=== PATIENT | female | born 1945 | race Caucasian/White ===

== ENCOUNTER → 2023-02-09 11:19 | Outpatient (REF) | payer MEDICARE, OTHER, SELFPAY | LOC: DHCBS MAIN 11:19 | PROVIDERS: ATTENDING PHYSICIAN Internal Medicine Cardiovascular Disease; FAMILY PHYSICIAN Family Medicine | DX: I34.0 Nonrheumatic mitral (valve) insufficiency (principal); I71.40 Abdominal aortic aneurysm, without rupture, unspecified | CPT/HCPCS: 93306 ==

== ENCOUNTER → 2023-05-24 12:21 | Outpatient (REF) | payer MEDICARE, OTHER, SELFPAY ==
[2023-05-24 14:03] LABS: Blood Urea Nitrogen 27 mg/dl (7-17)
== END ==
LOC: REG 12:21
PROVIDERS: ATTENDING PHYSICIAN Nurse Practitioner; FAMILY PHYSICIAN Family Medicine; OTHER PHYSICIAN Thoracic Surgery (Cardiothoracic Vascular Surgery)
DX: I71.20 Thoracic aortic aneurysm, without rupture, unspecified (principal); I35.9 Nonrheumatic aortic valve disorder, unspecified; I05.9 Rheumatic mitral valve disease, unspecified
CPT/HCPCS: 36415; 82565; 84520

== ENCOUNTER → 2023-06-02 11:19 | Outpatient (REF) | payer MEDICARE, OTHER, SELFPAY | LOC: RAD 11:19 | PROVIDERS: ATTENDING PHYSICIAN Nurse Practitioner; FAMILY PHYSICIAN Family Medicine | DX: I71.20 Thoracic aortic aneurysm, without rupture, unspecified (principal); I35.9 Nonrheumatic aortic valve disorder, unspecified; I05.9 Rheumatic mitral valve disease, unspecified | CPT/HCPCS: 71275; 74174; Q9967 ==

== ENCOUNTER → 2023-06-08 15:25 | Outpatient (REF) | payer MEDICARE, OTHER, SELFPAY | LOC: RCS 15:25 | PROVIDERS: ATTENDING PHYSICIAN Nurse Practitioner; FAMILY PHYSICIAN Family Medicine; REFERRING PHYSICIAN Internal Medicine Cardiovascular Disease | DX: I71.20 Thoracic aortic aneurysm, without rupture, unspecified (principal); I35.9 Nonrheumatic aortic valve disorder, unspecified; I05.9 Rheumatic mitral valve disease, unspecified | CPT/HCPCS: 93306 ==

== ENCOUNTER → 2023-06-09 13:19 | Outpatient (REF) | payer MEDICARE, OTHER, SELFPAY | LOC: WDC 13:19 | PROVIDERS: ATTENDING PHYSICIAN Obstetrics & Gynecology; FAMILY PHYSICIAN Family Medicine | DX: Z12.31 Encounter for screening mammogram for malignant neoplasm of breast (principal) | CPT/HCPCS: 77063; 77067 ==

== ENCOUNTER 2023-08-16 06:13 | Day surgery (SDC) | payer MEDICARE, OTHER, SELFPAY ==
[2023-08-16 11:28] VITALS: BMI 24.1
[2023-08-16 11:33] VITALS: BMI 24.1
[2023-08-16 11:34] VITALS: BP 147/91
[2023-08-16 13:35] VITALS: BP 124/79
[2023-08-16 13:45] VITALS: BP 128/68
[2023-08-16 14:00] VITALS: BP 153/80
== END 2023-08-16 14:20 | disposition home or self-care (01) ==
LOC: SDS 06:13
PROVIDERS: ATTENDING PHYSICIAN Internal Medicine Gastroenterology
DX: Z12.11 Encounter for screening for malignant neoplasm of colon (principal); D12.0 Benign neoplasm of cecum; D12.2 Benign neoplasm of ascending colon; K63.5 Polyp of colon; K64.0 First degree hemorrhoids; Z86.010 Personal history of colon polyps; Z79.01 Long term (current) use of anticoagulants
CPT/HCPCS: 45390; 45380; 88305

== ENCOUNTER 2023-10-03 15:27 | Emergency (ER) | payer MEDICARE, OTHER, SELFPAY ==
[2023-10-03 15:29] VITALS: BP 152/89
[2023-10-03 16:41] LABS: % Basophils 0.9 % (0-2); % Eosinophils 0.8 % (0-6); % Immature Granulocytes 0.3 % (0-0.5); % Lymphocytes 13.6 % (20.5-51.1); % Monocytes 8.8 % (1.7-9.3); % Neutrophils 75.6 % (42.2-75.2); Absolute Basophils 0.1 10^3/uL (0-0.2); Absolute Eosinophils 0.1 10^3/uL (0-0.7); Absolute Lymphocytes 1.1 10^3/uL (1.2-3.4); Absolute Monocytes 0.7 10^3/uL (0.1-0.6); Hematocrit 29.9 % (37.0-47.0); Hemoglobin 9.2 g/dL (12.0-16.0); Mean Corp Hgb Conc. 30.8 g/dL (33.0-37.0); Mean Corpuscular Hgb 26.3 pg (27.0-31.0); Mean Corpuscular Volume 85.4 fL (81.0-99.0); Nucleated Red Blood Cells % 0 %; Platelet Count 147 10^3/uL (130-400); White Blood Cell Count 7.9 10^3/uL (4.8-10.8)
[2023-10-03 17:15] LABS: Blood Urea Nitrogen 33 mg/dl (7-17); Calcium 9.7 mg/dl (8.4-10.2); Carbon Dioxide 22 mmol/L (22-30); Chloride 109 mmol/L (98-107); Glucose 92 mg/dl (70-99); Sodium 141 mmol/L (135-145); eGFR > 60.00
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
[2023-10-03] MEDS: VIBRAMYCIN 260 MG IV (18:17)
[2023-10-03 19:21] VITALS: BP 160/80
== END 2023-10-03 19:24 | disposition home or self-care (01) ==
LOC: EMR 15:27
PROVIDERS: Nurse Practitioner; EMERGENCY PHYSICIAN Emergency Medicine; FAMILY PHYSICIAN Family Medicine
DX: L03.114 Cellulitis of left upper limb (principal); L02.512 Cutaneous abscess of left hand; F17.200 Nicotine dependence, unspecified, uncomplicated
CPT/HCPCS: 99284; 96365; 73130; 80048; 85025; 87070; 87205

== ENCOUNTER → 2023-10-16 12:28 | Outpatient (REF) | payer MEDICARE, OTHER, SELFPAY | LOC: WOUND 12:28 | PROVIDERS: ATTENDING PHYSICIAN Surgery; FAMILY PHYSICIAN Family Medicine | DX: S61.412A Laceration without foreign body of left hand, initial encounter (principal); I48.92 Unspecified atrial flutter; Z79.01 Long term (current) use of anticoagulants; X58.XXXA Exposure to other specified factors, initial encounter | CPT/HCPCS: 99203 ==

== ENCOUNTER → 2023-10-24 14:15 | Outpatient (REF) | payer MEDICARE, OTHER, SELFPAY | LOC: WOUND 14:15 | PROVIDERS: ATTENDING PHYSICIAN Surgery; FAMILY PHYSICIAN Family Medicine | DX: S61.412A Laceration without foreign body of left hand, initial encounter (principal); Z79.01 Long term (current) use of anticoagulants; I48.92 Unspecified atrial flutter; W22.8XXA Striking against or struck by other objects, initial encounter; Y93.89 Activity, other specified | CPT/HCPCS: 99213 ==

== ENCOUNTER 2023-11-08 06:00 | Day surgery (SDC) | payer MEDICARE, OTHER, SELFPAY ==
[2023-10-23 12:45] VITALS: BMI 23.3
[2023-11-08] VITALS (20 sets, daily range): BP systolic 102–155; BP diastolic 56–89; BMI 23.1
--- NOTE | 2023-11-08 07:38 | ITS.CL.ABL ---
Development Vice President - Ablation
Ablation
Procedure Report:
Primary Administrative Personal Assistant: Jemal Ibrahim MD
Procedure Date: 11/08/2023
Procedure
Electrophysiology Study, with RA, CS pacing and recording
Radiofrequency Ablation of Counterclockwise Cavotricuspid Isthmus-dependent Right Atrial Flutter
Three-dimensional Electroanatomic Mapping and Navigation
Patient History
See H&P for complete details
Patient is a pleasant 77-year-old female with a past medical history significant for much regurgitation, hypertension, thoracic aortic aneurysm status post TEVAR 2017, COPD, teratoma, giant cell arteritis, AAA, PACs, carotid bruits, and symptomatic
persistent typical atrial flutter.
Method
After informed consent was obtained, the patient was brought to the EP lab in a post-absorptive, non-sedated state. A peripheral IV was in place. Continuous electrocardiography, blood pressure and pulse oximetry monitoring were initiated and
cardioversion / defibrillator patch electrodes were positioned on the chest in an anterior-posterior orientation. Sedation was administered via the anesthesia services. A time-out was called. Local anesthesia was administered at the right and left
femoral vein access sites. Vascular access was achieved using modified Seldinger technique, and 3 sheaths were placed.
The patient entered the room in [ ]. A multipolar catheter were advanced to the coronary sinus. A mapping / ablation catheter was used to record and pace. Intracardiac ultrasound (ICE) was utilized for structural assessment and monitoring. There
was no evidence of pericardial effusion at the initiation of the procedure, during procedure, or at completion of procedure. Tachycardia was characterized by activation patterns in the CS catheters. Entrainment maneuvers established cavotricuspid
isthmus-dependence.
Three-dimensional electroanatomic mapping was utilized. Catheter ablation in the right atrium was performed as described below. The patient�s atrial flutter terminated during ablation. Ablation continued until a line was complete from the
tricuspid valve annulus to the IVC-RA junction. Clockwise and counterclockwise trans-isthmus times were determined, and RA activation patterns confirmed bidirectional block. Interval measurements in NSR were made. A waiting period was observed,
after which the procedure was concluded.
At the end of the procedure, all catheters and sheaths were removed, hemostasis was assured in the standard fashion with figure of 8 suture, and the patient was taken to the recovery area in stable condition.
Baseline Intervals:
Rhythm: Atrial flutter, tachycardia cycle length 260-270 ms
QRS: 76 ms
Post-Procedure Intervals:
[place]: 133 ms
QRS: 90 ms
QT: 356 ms
QTc: 401 ms
A-A: 787 ms
R-R: 787 ms
AVWB: 480 ms
AVNERP: 600/390 ms
No arrhythmia was inducible post ablation
Arrhythmia Summary
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
� Present at study outset
� Stable Atrial CL = 260-270 ms
� Surface flutter wave morphology: Negative in the inferior leads and positive in V1
� Right to left activation in CS
� Cycle length contained with in the RA on electroanatomic mapping
� Pacing from the isthmus resulted in entrainment (with concealment) with PPI=TCL.
These finding established the diagnosis of isthmus-dependent, counterclockwise atrial flutter.
Mapping and Ablation
Utilizing electroanatomic three-dimensional navigation, a 3.5 mm tip [employer] irrigated ablation catheter was advanced to the right atrium with the assistance of an 11.5 Fr Agilis steerable long sheath. An electroanatomic three-dimensional map
of the right atrium was constructed, with careful attention to anatomic landmarks, including the coronary sinus, IVC-RA and SVC-RA junction, tricuspid valve annulus, and region of the His bundle electrogram.
An ablation line was created from the tricuspid annulus to the IVC in the 6:00 position (UZBEK clock). Power was titrated between 30 and 40 Patel with careful monitoring of impedance, temperature, and position. The patient�s atrial flutter
terminated during ablation, with resumption of NSR. The line was completed during CS pacing, and bidirectional block was achieved. Following initial ablation, transisthmus time was noted to be 112-120 ms. Careful mapping along the line
demonstrated areas of breakthrough; repeat ablation was performed in these regions. The ablation line was mapped to ensure widely spaced double potentials, and after a 20 minute waiting period, bidirectional block persisted.
Ablation Summary
Total ablation time: 9 minutes 1 seconds
Estimated Blood Loss
<5 mL
Fluoroscopy Time 2.5
Radiation Dose 6.03 mGy
DAP 0.693
Complications
None
Conclusions
1. Typical, counterclockwise atrial flutter. Isthmus-dependence was established with entrainment.
2. Successful ablation of the cavotricuspid isthmus with bidirectional block.
Recommendations
- Admit for monitoring, anticipate discharge tomorrow
- Bedrest with straight leg precautions for four hours
- Resume anticoagulation tonight if patient/groins stable
- Continue remaining home medications as indicated
- Follow-up in clinic as schedule
Mich Hair,
Clinical Cardiac Electrophysiology
cc: Jemal Ibrahim MD; Maxim Boyer MD
--- NOTE | 2023-11-08 10:42 | PTCARENOTE ---
Dr Pappas in to speak to pt. EKG done and given to Dr Pappas. No further treatment ordered at this time.
[2023-11-08] MEDS: TOPROL XL PO (11:07)
--- NOTE | 2023-11-08 15:33 | CM ---
Chart reviewed. Patient is independent of ADLS, lives alone in a 2 STH, 1 CARLI, 0 DME. Plan is for the patient to return home. CM to follow
--- NOTE | 2023-11-08 18:07 | PTCARENOTE ---
Pt received post ablation done via right femoral vein. Dressing dry and intact, figure of eight suture removed per protocol without problem, no bleeding or hematoma noted. Pt up independently, no difficulty voiding. Pt denies nay discomfort.
Telemetry shows sinus rhythm with very frequent PAC's, rare PVC's, occasional bursts of tachycardia up to 130's.
[2023-11-08] MEDS: ELIQUIS 5 MG PO (19:44)
--- NOTE | 2023-11-09 00:39 | PTCARENOTE ---
Pt received start of shift, HR SA/Afib w/ frequent PACs + occasional PVCs. R groin site dressing CDI, area soft - no hematoma. Pt ambulating independently in room.
[2023-11-09 03:43] VITALS: BP 128/73
[2023-11-09 04:12] VITALS: BMI 23.3
[2023-11-09 04:23] LABS: Hemoglobin 8.9 g/dL (12.0-16.0); Mean Corp Hgb Conc. 30.7 g/dL (33.0-37.0); Mean Corpuscular Hgb 26.1 pg (27.0-31.0); Mean Platelet Volume 11.9 fL (7.4-10.4); Platelet Count 109 10^3/uL (130-400); Red Blood Cell Count 3.41 10^6/uL (4.20-5.40)
[2023-11-09 05:22] LABS: Blood Urea Nitrogen 28 mg/dl (7-17); Calcium 9.4 mg/dl (8.4-10.2); Carbon Dioxide 25 mmol/L (22-30); Chloride 106 mmol/L (98-107); Estimated Creatinine Clearance 55 ml/min; Glucose 95 mg/dl (70-99); Magnesium 2.2 mg/dl (1.6-2.3); Potassium 4.1 mmol/L (3.5-5.1); Sodium 138 mmol/L (135-145); eGFR > 60.00
[2023-11-09 07:48] VITALS: BP 138/75
[2023-11-09] MEDS: ELIQUIS 5 MG PO (07:58)
[2023-11-09] MEDS: TOPROL XL 25 MG PO (07:59)
--- NOTE | 2023-11-09 08:01 | W.PN.CARDCBS ---
Today's Communication / Plan
-
post CTI flutter ablation
Hbg drop will recheck in 1 week
stable for home today
Impression / Plan
-
Primary care physician: Maxim Boyer MD
Primary front desk agent: Jemal Ibrahim MD
77-year-old female with a past medical history significant for much regurgitation, hypertension, thoracic aortic aneurysm status post TEVAR 2018, COPD, teratoma, giant cell arteritis, AAA, PACs, carotid bruits, and symptomatic persistent typical
atrial flutter.
Impression:
Symptomatic Atrial flutter
post CTI flutter ablation 11/08/23
HTN
TAA post TEVAR 2017 with stent 2018
COPD
Chronic Anemia
Giant cell arteritis
AAA
former smoker
Plan:
post ablation groin stable
tele SR with occ PAC's and brief PAT
Hbg dropped from 10.1 -> 8.9, Hbg ranges 9-10 baseline, will check cbc in 1 week, no melena or hematuria
Continue OAC Eliquis
continue Toprol 25mg daily
Activity restrictions reviewed
f/u Dr. Ibrahim in 2 mo
home today
Progress Note - Ict Security Specialist
Subjective
Date of Service: November 09, 2023
no cp, sob, mild back pain/generalized pain
Objective
Labs:
11/09/23 04:04
11/09/23 04:04
Labs
Hgb 8.9 g/dL (12.0-16.0) L 11/09/23 04:04
Hct 29.0 % (37.0-47.0) L 11/09/23 04:04
Plt Count 109 10^3/uL (130-400) L 11/09/23 04:04
Sodium 138 mmol/L (135-145) 11/09/23 04:04
Potassium 4.1 mmol/L (3.5-5.1) 11/09/23 04:04
BUN 28 mg/dl (7-17) H 11/09/23 04:04
Creatinine 0.8 mg/dL (0.6-1.0) 11/09/23 04:04
Glucose 95 mg/dl (70-99) 11/09/23 04:04
Vital Signs and I&O:
Vital Signs
Temp Pulse Resp BP Pulse Ox
98.3 F 71 20 138/75 90
11/09/23 07:41 11/09/23 07:48 11/09/23 07:41 11/09/23 07:48 11/09/23 07:48
Vital Signs
Temp Pulse Resp BP Pulse Ox
98.3 F 71 20 138/75 90
11/09/23 07:41 11/09/23 07:48 11/09/23 07:41 11/09/23 07:48 11/09/23 07:48
Intake & Output
11/07/23 11/08/23 11/09/23 11/10/23
06:59 06:59 06:59 06:59
Intake Total 1819
Balance 1819
Physical Exam
Physical Exam
NAD, AOX3
S1, S2, RRR
CTAB, non labored, no wheeze
SNTND bsx4
No LE edema
R fem site c/d/i no HT, soft
--- NOTE | 2023-11-09 10:28 | PTCARENOTE ---
Pt denies any discomfort, seen by Maria Patel, COMMUNITY SUPPORT SPECIALIST adn cardiology. Telemetry and IV device removed. Discharge instructions reviewed with pt regarding activity and driving restrictions, wound care, medications and their possible side effects, reporting
cares and concrns and follow up appt's. Very good understanding verbalized. Pt escorted out via hweelchair and discharged to home.
--- NOTE | 2023-11-09 10:46 | W.DS.TRANS ---
DC Summary - [employer]
-
Discharge Instructions:
Sleep Apnea Risk Low
Discharge Diagnosis/Procedures Aflutter post ablation
Diet Low Cholesterol
Driving Restrictions No driving for 24 hours
Blood Work Check cbc in 1 week
Instructions:
Stand-Alone Forms: DC Instructions- Cath/EP Lab
Changes to Home Medications: No
Discharge Medications:
DC Medications w/original date entered in [facility]
acetaminophen 500 mg tablet 1,000 mg PO Q6H PRN pain 07/11/22
albuterol sulfate 90 mcg/actuation aerosol inhaler 1 puff inhalation [id number] PRN SOB 07/11/22
apixaban 5 mg tablet (Eliquis) 5 mg PO BID 07/11/22
metoprolol succinate 25 mg tablet,extended release 24 hr 25 mg PO DAILY 07/11/22
multivitamin 1 tab PO DAILY 07/11/22
Bi Flex Joint Supplement Glucosamine Hcl 1.5mg/ Chondroitin/Msm 1.1mg 1 tab PO DAILY 11/08/23
Calcium/ Magnesium 333mg/133mg 1 tab PO DAILY 11/08/23
clindamycin HCl 300 mg capsule 600 mg PO DAILYPRN PRN 1 hour before dentist 11/08/23
Home Medication Changes
Pending Results: No
== END 2023-11-09 10:30 | disposition home or self-care (01) ==
LOC: CATH 06:00
PROVIDERS: Nurse Practitioner Adult Health; ATTENDING PHYSICIAN Internal Medicine Cardiovascular Disease; FAMILY PHYSICIAN Family Medicine; OTHER PHYSICIAN Internal Medicine Cardiovascular Disease
DX: I48.3 Typical atrial flutter (principal); I10 Essential (primary) hypertension; M31.6 Other giant cell arteritis; Z87.891 Personal history of nicotine dependence; Z79.01 Long term (current) use of anticoagulants; I71.40 Abdominal aortic aneurysm, without rupture, unspecified; I25.10 Atherosclerotic heart disease of native coronary artery without angina pectoris; Z87.19 Personal history of other diseases of the digestive system; Z86.79 Personal history of other diseases of the circulatory system; Z79.899 Other long term (current) drug therapy; Z98.890 Other specified postprocedural states
CPT/HCPCS: 93662; C1766; C2630; 76937; 80048; 83735; 85027; 93005; 93653

== ENCOUNTER → 2023-11-16 10:42 | Outpatient (REF) | payer MEDICARE, OTHER, SELFPAY ==
[2023-11-16 11:48] LABS: % Basophils 1.2 % (0-2); % Eosinophils 1.6 % (0-6); % Immature Granulocytes 0.4 % (0-0.5); % Lymphocytes 15.8 % (20.5-51.1); % Monocytes 13.6 % (1.7-9.3); % Neutrophils 67.4 % (42.2-75.2); Absolute Basophils 0.1 10^3/uL (0-0.2); Absolute Eosinophils 0.1 10^3/uL (0-0.7); Absolute Lymphocytes 0.8 10^3/uL (1.2-3.4); Absolute Monocytes 0.7 10^3/uL (0.1-0.6); Absolute Neutrophils 3.4 10^3/uL (1.4-6.5); Hematocrit 33.8 % (37.0-47.0); Mean Corp Hgb Conc. 29.6 g/dL (33.0-37.0); Mean Corpuscular Hgb 25.6 pg (27.0-31.0); Mean Corpuscular Volume 86.7 fL (81.0-99.0); Mean Platelet Volume 12.1 fL (7.4-10.4); Nucleated Red Blood Cells % 0 %; Platelet Count 153 10^3/uL (130-400); Red Cell Dist. Width 17.2 % (11.5-14.5); White Blood Cell Count 5.1 10^3/uL (4.8-10.8)
== END ==
LOC: REG 10:42
PROVIDERS: ATTENDING PHYSICIAN Internal Medicine Cardiovascular Disease; FAMILY PHYSICIAN Family Medicine
DX: D64.9 Anemia, unspecified (principal)
CPT/HCPCS: 36415; 85025

== ENCOUNTER → 2023-12-08 11:47 | Outpatient (REF) | payer MEDICARE, OTHER, SELFPAY ==
[2023-12-08 13:35] LABS: % Basophils 1.1 % (0-2); % Eosinophils 2.3 % (0-6); % Immature Granulocytes 0.4 % (0-0.5); % Lymphocytes 13.1 % (20.5-51.1); % Monocytes 12.5 % (1.7-9.3); % Neutrophils 70.6 % (42.2-75.2); Absolute Basophils 0.1 10^3/uL (0-0.2); Absolute Eosinophils 0.1 10^3/uL (0-0.7); Absolute Lymphocytes 0.7 10^3/uL (1.2-3.4); Absolute Monocytes 0.7 10^3/uL (0.1-0.6); Hemoglobin 10.5 g/dL (12.0-16.0); Mean Corpuscular Hgb 25.9 pg (27.0-31.0); Mean Corpuscular Volume 86.2 fL (81.0-99.0); Mean Platelet Volume 12.5 fL (7.4-10.4); Nucleated Red Blood Cells % 0 %; Platelet Count 135 10^3/uL (130-400); Red Blood Cell Count 4.06 10^6/uL (4.20-5.40); Red Cell Dist. Width 16.8 % (11.5-14.5); White Blood Cell Count 5.6 10^3/uL (4.8-10.8)
[2023-12-08 13:58] LABS: ALT (SGPT) 17 U/L (0-35); AST (SGOT) 25 U/L (14-36); Albumin 4.1 g/dl (3.5-5.0); Alkaline Phosphatase 88 U/L (38-126); Blood Urea Nitrogen 23 mg/dl (7-17); Calcium 9.6 mg/dl (8.4-10.2); Carbon Dioxide 27 mmol/L (22-30); Chloride 106 mmol/L (98-107); Glucose 95 mg/dl (70-99); Iron 84 ug/dl (37-170); Potassium 4.2 mmol/L (3.5-5.1); Sodium 143 mmol/L (135-145); Total Bilirubin 0.5 mg/dl (0.2-1.3); Total Protein 6.7 g/dl (6.3-8.2); eGFR > 60.00
[2023-12-08 14:07] LABS: Percent Saturation 18 % (20-50); Total Iron Binding Capacity 447 ug/dl (265-497)
[2023-12-08 15:03] LABS: Folate 12.8 ng/ml (2.76-20); Vitamin B12 381 pg/ml (239-931)
== END ==
LOC: REG 11:47
PROVIDERS: ATTENDING PHYSICIAN Family Medicine
DX: I10 Essential (primary) hypertension (principal); M15.9 Polyosteoarthritis, unspecified; D63.8 Anemia in other chronic diseases classified elsewhere; M54.6 Pain in thoracic spine; D51.9 Vitamin B12 deficiency anemia, unspecified; D51.8 Other vitamin B12 deficiency anemias
CPT/HCPCS: 36415; 72072; 80053; 82607; 82746; 83540; 83550; 85025

== ENCOUNTER → 2023-12-13 14:10 | Outpatient (REF) | payer MEDICARE, OTHER, SELFPAY | LOC: RAD 14:10 | PROVIDERS: ATTENDING PHYSICIAN Family Medicine; FAMILY PHYSICIAN Family Medicine | DX: M54.50 Low back pain, unspecified (principal) | CPT/HCPCS: 72110 ==

== ENCOUNTER 2024-02-13 06:05 | Day surgery (SDC) | payer MEDICARE, OTHER, SELFPAY ==
[2024-02-13 06:51] VITALS: BMI 23.3
[2024-02-13 06:52] VITALS: BMI 23.3
[2024-02-13 06:53] VITALS: BP 162/70
[2024-02-13 09:25] VITALS: BP 103/61
[2024-02-13 09:30] VITALS: BP 100/63
[2024-02-13 09:45] VITALS: BP 115/71
== END 2024-02-13 09:55 | disposition home or self-care (01) ==
LOC: SDS 06:05
PROVIDERS: ATTENDING PHYSICIAN Internal Medicine Gastroenterology
DX: Z12.11 Encounter for screening for malignant neoplasm of colon (principal); D12.0 Benign neoplasm of cecum; K64.0 First degree hemorrhoids; Z86.0101 Personal history of adenomatous and serrated colon polyps; Z98.890 Other specified postprocedural states
CPT/HCPCS: 45385; 88305

== ENCOUNTER → 2024-05-14 13:22 | Outpatient (REF) | payer MEDICARE, OTHER, SELFPAY ==
[2024-05-14 14:57] LABS: Blood Urea Nitrogen 33 mg/dl (7-17)
== END ==
LOC: REG 13:22
PROVIDERS: ATTENDING PHYSICIAN Nurse Practitioner; FAMILY PHYSICIAN Family Medicine
DX: I71.20 Thoracic aortic aneurysm, without rupture, unspecified (principal)
CPT/HCPCS: 36415; 82565; 84520

== ENCOUNTER → 2024-06-10 12:57 | Outpatient (REF) | payer MEDICARE, OTHER, SELFPAY | LOC: RCS 12:57 | PROVIDERS: ATTENDING PHYSICIAN Nurse Practitioner; FAMILY PHYSICIAN Family Medicine | DX: I71.20 Thoracic aortic aneurysm, without rupture, unspecified (principal) | CPT/HCPCS: 93306 ==

== ENCOUNTER → 2024-06-12 13:08 | Outpatient (REF) | payer MEDICARE, OTHER, SELFPAY | LOC: RAD 13:08 | PROVIDERS: ATTENDING PHYSICIAN Nurse Practitioner; FAMILY PHYSICIAN Family Medicine | DX: I71.20 Thoracic aortic aneurysm, without rupture, unspecified (principal) | CPT/HCPCS: 71275; 74174; Q9967 ==

== ENCOUNTER → 2024-07-23 08:35 | Outpatient (REF) | payer MEDICARE, OTHER, SELFPAY | LOC: RSP 08:35 | PROVIDERS: ATTENDING PHYSICIAN Thoracic Surgery (Cardiothoracic Vascular Surgery); FAMILY PHYSICIAN Family Medicine | DX: R91.1 Solitary pulmonary nodule (principal) | CPT/HCPCS: 94060 ==

== ENCOUNTER → 2024-08-02 09:29 | Outpatient (REF) | payer MEDICARE, OTHER, SELFPAY ==
[2024-08-02 10:21] LABS: ALT (SGPT) 21 U/L (0-35); AST (SGOT) 23 U/L (14-36); Albumin 4.1 g/dl (3.5-5.0); Alkaline Phosphatase 95 U/L (38-126); Blood Urea Nitrogen 22 mg/dl (7-17); Calcium 9.4 mg/dl (8.4-10.2); Carbon Dioxide 27 mmol/L (22-30); Chloride 105 mmol/L (98-107); Glucose 92 mg/dl (70-99); HDL Cholesterol 85 mg/dl; LDL Cholesterol, Calculated 77 mg/dl; Potassium 4.1 mmol/L (3.5-5.1); Sodium 142 mmol/L (135-145); Total Bilirubin 0.7 mg/dl (0.2-1.3); Total Cholesterol 174 mg/dl (50-199); Total Protein 6.8 g/dl (6.3-8.2); Triglyceride 63 mg/dl (10-149); Very Low Density Lipoprotein 12 mg/dl (0-30); eGFR > 60.00
== END ==
LOC: REG 09:29
PROVIDERS: ATTENDING PHYSICIAN Internal Medicine Cardiovascular Disease; FAMILY PHYSICIAN Family Medicine
DX: I10 Essential (primary) hypertension (principal); E78.49 Other hyperlipidemia
CPT/HCPCS: 36415; 80053; 80061

== ENCOUNTER → 2024-10-24 12:35 | Outpatient (REF) | payer MEDICARE, OTHER, SELFPAY ==
[2024-10-24 13:24] LABS: Hematocrit 37.0 % (37.0-47.0); Hemoglobin 11.2 g/dL (12.0-16.0); Mean Corp Hgb Conc. 30.3 g/dL (33.0-37.0); Mean Corpuscular Volume 91.1 fL (81.0-99.0); Nucleated Red Blood Cells % 0 %; Platelet Count 190 10^3/uL (130-400); Red Cell Dist. Width 13.5 % (11.5-14.5)
[2024-10-24 14:05] LABS: ALT (SGPT) 17 U/L (0-35); AST (SGOT) 22 U/L (14-36); Albumin 4.6 g/dl (3.5-5.0); Alkaline Phosphatase 104 U/L (38-126); Blood Urea Nitrogen 29 mg/dl (7-17); Calcium 9.5 mg/dl (8.4-10.2); Carbon Dioxide 28 mmol/L (22-30); Chloride 105 mmol/L (98-107); Glucose 93 mg/dl (70-99); Potassium 4.3 mmol/L (3.5-5.1); Sodium 142 mmol/L (135-145); Total Protein 7.6 g/dl (6.3-8.2); eGFR > 60.00
[2024-10-24 14:19] LABS: INR 0.97; PT 13.3 Sec (11.4-14.6)
[2024-10-24 14:21] LABS: APTT 35.4 Sec (23.4-35.0)
== END ==
LOC: REG 12:35
PROVIDERS: ATTENDING PHYSICIAN Internal Medicine Hematology & Oncology; FAMILY PHYSICIAN Family Medicine
DX: C34.91 Malignant neoplasm of unspecified part of right bronchus or lung (principal); Z79.01 Long term (current) use of anticoagulants
CPT/HCPCS: 36415; 80053; 85025; 85610; 85730

== ENCOUNTER → 2024-10-28 09:52 | Outpatient (REF) | payer MEDICARE, OTHER, SELFPAY ==
[2024-10-28 06:00] VITALS: BMI 22.7
[2024-10-28 10:43] VITALS: BP 142/68; BP_SYST 68
[2024-10-28] MEDS: VANCOCIN 200 IV (11:06)
[2024-10-28 12:20] VITALS: BP 149/69; BP_SYST 63
[2024-10-28 12:25] VITALS: BP 154/73; BP_SYST 59
[2024-10-28 12:40] VITALS: BP 131/62; BP_SYST 75
== END ==
LOC: RADI 09:52
PROVIDERS: ATTENDING PHYSICIAN Internal Medicine Hematology & Oncology; FAMILY PHYSICIAN Family Medicine
DX: C34.91 Malignant neoplasm of unspecified part of right bronchus or lung (principal)
CPT/HCPCS: 36561; 76942; 77001; 99152; 99153

== ENCOUNTER → 2024-11-04 11:22 | Outpatient (REF) | payer MEDICARE, OTHER, SELFPAY ==
[2024-11-04 12:25] LABS: Hematocrit 36.7 % (37.0-47.0); Hemoglobin 11.3 g/dL (12.0-16.0); Mean Corp Hgb Conc. 30.8 g/dL (33.0-37.0); Mean Corpuscular Volume 87.4 fL (81.0-99.0); Nucleated Red Blood Cells % 0 %; Platelet Count 128 10^3/uL (130-400); Red Cell Dist. Width 13.1 % (11.5-14.5)
[2024-11-04 14:28] LABS: Urine Character Slightly Cloudy (Clear)
[2024-11-04 15:10] LABS: Urine Red Blood Cell 0-2 /HPF (0-2); Urine Squamous Cell 0-2 /LPF (Few); Urine White Cell 50-60 /HPF (0-5)
== END ==
LOC: REG 11:22
PROVIDERS: ATTENDING PHYSICIAN Internal Medicine Hematology & Oncology; FAMILY PHYSICIAN Family Medicine
DX: C34.91 Malignant neoplasm of unspecified part of right bronchus or lung (principal); Z79.01 Long term (current) use of anticoagulants; N39.0 Urinary tract infection, site not specified
CPT/HCPCS: 36415; 81003; 81015; 85025; 87077; 87086; 87186

== ENCOUNTER → 2024-11-18 09:31 | Outpatient (REF) | payer MEDICARE, OTHER, SELFPAY ==
[2024-11-18 10:39] LABS: Hematocrit 33.5 % (37.0-47.0); Hemoglobin 10.3 g/dL (12.0-16.0); Mean Corp Hgb Conc. 30.7 g/dL (33.0-37.0); Mean Corpuscular Volume 89.3 fL (81.0-99.0); Nucleated Red Blood Cells % 0 %; Platelet Count 308 10^3/uL (130-400); Red Cell Dist. Width 14.2 % (11.5-14.5)
[2024-11-18 11:29] LABS: ALT (SGPT) 15 U/L (0-35); AST (SGOT) 20 U/L (14-36); Albumin 4.1 g/dl (3.5-5.0); Alkaline Phosphatase 83 U/L (38-126); Blood Urea Nitrogen 26 mg/dl (7-17); Calcium 9.5 mg/dl (8.4-10.2); Carbon Dioxide 29 mmol/L (22-30); Chloride 105 mmol/L (98-107); Glucose 90 mg/dl (70-99); Magnesium 2.1 mg/dl (1.6-2.3); Potassium 4.4 mmol/L (3.5-5.1); Sodium 140 mmol/L (135-145); Total Protein 6.8 g/dl (6.3-8.2); eGFR > 60.00
[2024-11-18 17:07] LABS: Urine Character Clear (Clear)
[2024-11-18 17:18] LABS: Urine Squamous Cell 16-20 /LPF (Few)
== END ==
LOC: REG 09:31
PROVIDERS: ATTENDING PHYSICIAN Internal Medicine Hematology & Oncology; FAMILY PHYSICIAN Family Medicine
DX: C34.91 Malignant neoplasm of unspecified part of right bronchus or lung (principal); Z79.01 Long term (current) use of anticoagulants
CPT/HCPCS: 36415; 80053; 81003; 81015; 83735; 85025; 87086

== ENCOUNTER → 2024-12-10 08:08 | Outpatient (REF) | payer MEDICARE, OTHER, SELFPAY ==
[2024-12-10 09:30] LABS: Hematocrit 33.1 % (37.0-47.0); Hemoglobin 10.0 g/dL (12.0-16.0); Mean Corp Hgb Conc. 30.2 g/dL (33.0-37.0); Mean Corpuscular Volume 90.2 fL (81.0-99.0); Nucleated Red Blood Cells % 0 %; Platelet Count 211 10^3/uL (130-400); Red Cell Dist. Width 16.0 % (11.5-14.5)
[2024-12-10 10:08] LABS: ALT (SGPT) 15 U/L (0-35); AST (SGOT) 20 U/L (14-36); Albumin 4.1 g/dl (3.5-5.0); Alkaline Phosphatase 85 U/L (38-126); Blood Urea Nitrogen 22 mg/dl (7-17); Calcium 9.5 mg/dl (8.4-10.2); Carbon Dioxide 31 mmol/L (22-30); Chloride 105 mmol/L (98-107); Glucose 94 mg/dl (70-99); Magnesium 2.0 mg/dl (1.6-2.3); Potassium 4.0 mmol/L (3.5-5.1); Sodium 141 mmol/L (135-145); Total Protein 6.8 g/dl (6.3-8.2); eGFR > 60.00
== END ==
LOC: REG 08:08
PROVIDERS: ATTENDING PHYSICIAN Internal Medicine Hematology & Oncology; FAMILY PHYSICIAN Family Medicine
DX: C34.91 Malignant neoplasm of unspecified part of right bronchus or lung (principal); Z79.01 Long term (current) use of anticoagulants
CPT/HCPCS: 36415; 80053; 83735; 85025

== ENCOUNTER → 2024-12-18 16:03 | Outpatient (REF) | payer MEDICARE, OTHER, SELFPAY ==
[2024-12-18 14:42] LABS: Hematocrit 29.6 % (37.0-47.0); Hemoglobin 9.4 g/dL (12.0-16.0); Mean Corp Hgb Conc. 31.8 g/dL (33.0-37.0); Mean Corpuscular Volume 87.6 fL (81.0-99.0); Platelet Count 131 10^3/uL (130-400); Red Cell Dist. Width 15.4 % (11.5-14.5)
[2024-12-18 15:20] LABS: Blood Urea Nitrogen 24 mg/dl (7-17); Calcium 9.0 mg/dl (8.4-10.2); Carbon Dioxide 29 mmol/L (22-30); Chloride 102 mmol/L (98-107); Glucose 89 mg/dl (70-99); Potassium 4.4 mmol/L (3.5-5.1); Sodium 135 mmol/L (135-145); eGFR > 60.00
[2024-12-18 16:12] LABS: Urine Red Blood Cell 0-2 /HPF (0-2)
== END ==
LOC: OIDL 16:03
PROVIDERS: ATTENDING PHYSICIAN Internal Medicine Hematology & Oncology
DX: C34.91 Malignant neoplasm of unspecified part of right bronchus or lung (principal)
CPT/HCPCS: 80048; 81015; 85025; 87086

== ENCOUNTER → 2024-12-30 12:55 | Outpatient (REF) | payer MEDICARE, OTHER, SELFPAY ==
[2024-12-30 14:18] LABS: Hematocrit 31.9 % (37.0-47.0); Hemoglobin 10.0 g/dL (12.0-16.0); Mean Corp Hgb Conc. 31.3 g/dL (33.0-37.0); Mean Corpuscular Volume 89.6 fL (81.0-99.0); Nucleated Red Blood Cells % 0 %; Platelet Count 186 10^3/uL (130-400); Red Cell Dist. Width 16.9 % (11.5-14.5)
[2024-12-30 14:59] LABS: ALT (SGPT) 12 U/L (0-35); AST (SGOT) 18 U/L (14-36); Albumin 4.1 g/dl (3.5-5.0); Alkaline Phosphatase 94 U/L (38-126); Blood Urea Nitrogen 20 mg/dl (7-17); Calcium 9.3 mg/dl (8.4-10.2); Carbon Dioxide 34 mmol/L (22-30); Chloride 103 mmol/L (98-107); Glucose 69 mg/dl (70-99); Magnesium 2.1 mg/dl (1.6-2.3); Potassium 4.7 mmol/L (3.5-5.1); Sodium 139 mmol/L (135-145); Total Protein 6.8 g/dl (6.3-8.2); eGFR > 60.00
== END ==
LOC: REG 12:55
PROVIDERS: ATTENDING PHYSICIAN Internal Medicine Hematology & Oncology
DX: C34.91 Malignant neoplasm of unspecified part of right bronchus or lung (principal); Z79.01 Long term (current) use of anticoagulants
CPT/HCPCS: 36415; 80053; 83735; 85025

== ENCOUNTER → 2025-01-08 14:19 | Outpatient (REF) | payer MEDICARE, OTHER, SELFPAY ==
[2025-01-08 15:19] LABS: Hematocrit 32.4 % (37.0-47.0); Hemoglobin 9.9 g/dL (12.0-16.0); Mean Corp Hgb Conc. 30.6 g/dL (33.0-37.0); Mean Corpuscular Volume 88.8 fL (81.0-99.0); Platelet Count 130 10^3/uL (130-400); Red Cell Dist. Width 16.6 % (11.5-14.5)
[2025-01-08 15:53] LABS: Nucleated Red Blood Cells % 0 %
[2025-01-08 16:03] LABS: ALT (SGPT) 16 U/L (0-35); AST (SGOT) 20 U/L (14-36); Albumin 4.1 g/dl (3.5-5.0); Alkaline Phosphatase 90 U/L (38-126); Blood Urea Nitrogen 24 mg/dl (7-17); Calcium 9.0 mg/dl (8.4-10.2); Carbon Dioxide 31 mmol/L (22-30); Chloride 100 mmol/L (98-107); Glucose 125 mg/dl (70-99); Magnesium 1.7 mg/dl (1.6-2.3); Potassium 4.0 mmol/L (3.5-5.1); Sodium 138 mmol/L (135-145); Total Protein 6.9 g/dl (6.3-8.2); eGFR > 60.00
== END ==
LOC: REG 14:19
PROVIDERS: ATTENDING PHYSICIAN Internal Medicine Hematology & Oncology; FAMILY PHYSICIAN Family Medicine
DX: C34.91 Malignant neoplasm of unspecified part of right bronchus or lung (principal); Z79.01 Long term (current) use of anticoagulants; R30.0 Dysuria
CPT/HCPCS: 36415; 80053; 83735; 85025

== ENCOUNTER → 2025-01-15 12:44 | Outpatient (REF) | payer MEDICARE, OTHER, SELFPAY ==
[2025-01-15 13:43] LABS: Hematocrit 30.6 % (37.0-47.0); Hemoglobin 9.3 g/dL (12.0-16.0); Mean Corp Hgb Conc. 30.4 g/dL (33.0-37.0); Mean Corpuscular Volume 90.5 fL (81.0-99.0); Nucleated Red Blood Cells % 0 %; Red Cell Dist. Width 17.5 % (11.5-14.5)
[2025-01-15 13:54] LABS: ALT (SGPT) 14 U/L (0-35); AST (SGOT) 21 U/L (14-36); Albumin 3.9 g/dl (3.5-5.0); Alkaline Phosphatase 87 U/L (38-126); Blood Urea Nitrogen 21 mg/dl (7-17); Calcium 9.1 mg/dl (8.4-10.2); Carbon Dioxide 31 mmol/L (22-30); Chloride 102 mmol/L (98-107); Glucose 116 mg/dl (70-99); Magnesium 1.8 mg/dl (1.6-2.3); Potassium 3.7 mmol/L (3.5-5.1); Sodium 141 mmol/L (135-145); Total Protein 6.7 g/dl (6.3-8.2); eGFR > 60.00
[2025-01-15 14:02] LABS: Platelet Count 98 10^3/uL (130-400)
== END ==
LOC: REG 12:44
PROVIDERS: ATTENDING PHYSICIAN Internal Medicine Hematology & Oncology; FAMILY PHYSICIAN Family Medicine
DX: C34.91 Malignant neoplasm of unspecified part of right bronchus or lung (principal); Z79.01 Long term (current) use of anticoagulants; R30.0 Dysuria
CPT/HCPCS: 36415; 80053; 83735; 85025

== ENCOUNTER → 2025-01-23 13:28 | Outpatient (REF) | payer MEDICARE, OTHER, SELFPAY | LOC: RCS 13:28 | PROVIDERS: ATTENDING PHYSICIAN Internal Medicine Cardiovascular Disease; FAMILY PHYSICIAN Family Medicine | DX: I48.92 Unspecified atrial flutter (principal); I49.1 Atrial premature depolarization | CPT/HCPCS: 93306 ==

== ENCOUNTER → 2025-03-07 12:17 | Outpatient (REF) | payer MEDICARE, OTHER, SELFPAY ==
[2025-03-07 13:17] LABS: Hematocrit 35.8 % (37.0-47.0); Hemoglobin 10.8 g/dL (12.0-16.0); Mean Corp Hgb Conc. 30.2 g/dL (33.0-37.0); Mean Corpuscular Volume 93.7 fL (81.0-99.0); Nucleated Red Blood Cells % 0 %; Platelet Count 144 10^3/uL (130-400); Red Cell Dist. Width 13.3 % (11.5-14.5)
[2025-03-07 13:43] LABS: ALT (SGPT) 16 U/L (0-35); AST (SGOT) 21 U/L (14-36); Albumin 4.4 g/dl (3.5-5.0); Alkaline Phosphatase 94 U/L (38-126); Blood Urea Nitrogen 22 mg/dl (7-17); Calcium 9.7 mg/dl (8.4-10.2); Carbon Dioxide 33 mmol/L (22-30); Chloride 100 mmol/L (98-107); Glucose 77 mg/dl (70-99); Magnesium 2.1 mg/dl (1.6-2.3); Potassium 3.9 mmol/L (3.5-5.1); Sodium 138 mmol/L (135-145); Total Protein 7.6 g/dl (6.3-8.2); eGFR > 60.00
== END ==
LOC: REG 12:17
PROVIDERS: ATTENDING PHYSICIAN Internal Medicine Hematology & Oncology; FAMILY PHYSICIAN Family Medicine
DX: C34.91 Malignant neoplasm of unspecified part of right bronchus or lung (principal); Z79.01 Long term (current) use of anticoagulants
CPT/HCPCS: 36415; 80053; 83735; 85025

== ENCOUNTER → 2025-03-12 13:43 | Outpatient (REF) | payer MEDICARE, OTHER, SELFPAY | LOC: RAD 13:43 | PROVIDERS: ATTENDING PHYSICIAN Internal Medicine Hematology & Oncology; FAMILY PHYSICIAN Family Medicine | DX: C34.91 Malignant neoplasm of unspecified part of right bronchus or lung (principal); Z79.01 Long term (current) use of anticoagulants; R30.0 Dysuria | CPT/HCPCS: 71260; Q9967 ==